=== PATIENT | female | born 1955 | race Hispanic/Latino ===

== ENCOUNTER 2017-01-31 11:55 | Outpatient (CLI) | payer BC, OTHER ==
[2017-01-31] MEDS ORDERED: PROVENTIL IH ONE (12:14)
== END 2017-01-31 11:56 | disposition home or self-care (01) ==
LOC: PF 11:55
PROVIDERS: ATTEND Internal Medicine
DX: I50.9 Heart failure, unspecified (principal); I26.99 Other pulmonary embolism without acute cor pulmonale; J44.9 Chronic obstructive pulmonary disease, unspecified; F17.200 Nicotine dependence, unspecified, uncomplicated
CPT/HCPCS: 94060; 94640; 94729